=== PATIENT | male | born 1965 | race Caucasian/White ===

== ENCOUNTER 2016-10-12 08:10 | Day surgery (SDC) | payer BC ==
[~2016-10-12] VITALS: Ht 185.4 cm; Wt 139.3 kg
[~2016-10-12 08:10] MED LIST: CELEXA20 MG PO; CLARITIN 10 MG10 MG PO; FLOMAX0.4 MG; GLUCOPHAGE1000 MG PO; GLUCOTROL 5 MG T5 MG PO; MULTIPLE VITAMI1 TA1 PO; NORVASC10 MG PO; OMEPRAZOLE20 M1 PO; ZESTRIL20 MG PO; ZESTRIL40 MG; ZYLOPRIM100 MG PO
[2016-10-12 08:46] VITALS: BP 133/77; Ht 185.4 cm; Wt 139.3 kg
[2016-10-12 09:06] LABS: CALC OSMOLALITY 279 mosm/kg (275-300); CARBON DIOXIDE 28.6 mmol/L (21.0-32.0); CHLORIDE - SERUM 102 mmol/L (98-107); POTASSIUM - SERUM 3.9 mmol/L (3.5-5.1); SODIUM 138 mmol/L (136-145); UREA NITROGEN 13 mg/dL (7-18); eGFR NON AFRICAN AMERICAN 84 mL/min (90-120)
[2016-10-12 09:13] LABS: GLUCOSE 167 mg/dL (74-106)
[2016-10-12 09:17] LABS: BASOPHILS 1.4 % (0.0-2.0); EOSINOPHILS 7.8 % (0-7); HEMATOCRIT 42.2 % (42.0-54.0); HEMOGLOBIN 14.7 g/dL (13.5-17.5); IMMATURE GRANULOCYTES 0.3 % (0-5); LYMPHOCYTES 26.2 % (15-50); MCH 31.1 pg (26.0-34.0); MCHC 34.8 g/dL (31.0-37.0); MCV 89.4 fL (80.0-100.0); MEAN PLATELET VOLUME 12.1 fL (7.4-10.4); NEUTROPHILS 57.3 % (40-80); PLATELET COUNT 161 10x3/uL (130-400); RBC 4.72 10x6/uL (4.20-6.10); WBC 9.5 10x3/uL (4.8-10.8)
[2016-10-12 09:49] LABS: APTT 35.5 SECONDS (22.8-39.4)
--- NOTE | 2016-10-12 11:39 | NUR ---
PATIENT ARMS AT SIDE AND BLANKET WRAPPED AROUND ROLAN RODRÍGUEZ.
--- NOTE | 2016-10-12 12:40 | NUR ---
CARE TO HEMANT SHANKAR RN @[phone]
--- NOTE | 2016-10-12 14:57 | OP ---
PATIENT NAME: ASTON OREILLY MEDICAL RECORD: [id number] :69 LOCATION:[facility] ADMISSION DATE: SURGEON: CELY ALAS MD DATE OF OPERATION: 10/12/2016 PREOPERATIVE DIAGNOSIS: Carcinoma of the left tongue. POSTOPERATIVE DIAGNOSIS: Carcinoma of the left tongue. PROCEDURE: Wide local excision of left lateral tongue. SURGEON: Cely Alas MD ANESTHESIA: General orotracheal. BLOOD LOSS: Less than 5 cc. SPECIMENS: Left lateral tongue excision with a suture at 12 o'clock. COMPLICATIONS: None. DISPOSITION: Recovery, stable. Frozen section margins were negative, but I really did not see any tumor in the specimen. HISTORY: Mr. Oreilly had a previous excision of left lateral tongue, mostly appeared to be a dysplasia, but there was a microscopic evidence of CIS or microinvasive carcinoma at one point near a margin. He is admitted for wide local excision to make sure adequate margins are obtained. DESCRIPTION OF PROCEDURE: He was brought to the operating room and placed in supine position, sedated and intubated by anesthesia. Eyes were taped. A right rubber tooth bite block was placed on the right side. The left tongue was dried off with Ray-Patito sponge and the area was injected with 1 cc of 1% lidocaine with 1:100,000 epinephrine. A 15 blade was used to make an elliptical incision with margins of a cm above and below the previous excised area. This was taken down deeply into the muscle with Metzenbaum scissors. A suture was used to qing the position at 12 o'clock and that was sent for frozen. Bleeding was controlled with cautery and then multiple horizontal mattress 3-0 Vicryl sutures were used to fold up the tongue and recreate a shape and close up the mucosal edges. Then, the mucosal edges were closed with interrupted 4-0 chromic[address] Path returned no evidence of tumor dysplasia and the specimen. At that point, the procedure was complete. He was awakened, extubated, and transported to recovery in good condition. No complications. TRANSINT:[id number] Voice Confirmation ID: [id number] DOCUMENT ID: [id number] OPERATIVE REPORT [id number] ASTON OREILLY CELY ALAS MD at [id number] CC: [id number] DICTATION DATE: 10/12/16 1318 HR ANALYST: 10/12/16 1356 [facility] [address] [id number]
--- NOTE | 2016-10-23 10:18 | HP ---
PATIENT: ASTON OREILLY MEDICAL RECORD: [id number] ACCOUNT: [id number] LOCATION:[facility] : 69 ADMISSION DATE: 10/12/16 HISTORY AND PHYSICAL EXAMINATION Preoperative history and physical HISTORY OF PRESENT ILLNESS: Mr. Oreilly is a 51-year-old white male with a history of a carcinoma of the tongue in 2003. He has had an area of dysplasia excised since then. Last month, I excised another area in the left side of the tongue and on final pathology, there was a microscopic focus of carcinoma in situ or invasive carcinoma near the margin. He has been admitted for wide local excision of left side of the tongue around that previous excisional biopsy. PAST SURGICAL HISTORY: Includes diabetes, hypertension, reflux, and tongue cancer. SOCIAL HISTORY: Includes chewing tobacco. He quit long ago. CURRENT MEDICATIONS: Amlodipine, lisinopril, omeprazole, glipizide, metformin, and citalopram. ALLERGIES: No known drug allergies. PHYSICAL EXAMINATION: GENERAL: He is a healthy appearing and alert. FACE: Normal and symmetric. No lesions. EYES: Sclerae and conjunctivae are normal. EARS: Canals and TMs are normal. NOSE: No mass, polyps or drainage. ORAL CAVITY AND OROPHARYNX: He has a suture line in the left side of the tongue from previous excision. There is no obvious lesion. NECK: No masses and no adenopathy. CHEST: Clear. CARDIOVASCULAR: Regular rate and rhythm. No murmur. EXTREMITIES: Normal. IMPRESSION: Previous excisional biopsy showed microscopic focus of carcinoma. He is being admitted for wide local excision left side of the tongue to make sure there are adequate margins and is disease-free. TRANSINT:[id number] Voice Confirmation ID: [id number] DOCUMENT ID: [id number] CELY ALAS MD at 1018 CC: [id number] DICTATION DATE: 10/16/16 1039 [facility] 7 [address] 8 VISITING TEACHER: 10/16/16 1117 [facility] 10/12/16 [place] [phone]
== END 2016-10-12 14:45 | disposition home or self-care (01) ==
LOC: D.OPS 08:10
PROVIDERS: Anesthesiology
DX: C02.1 Malignant neoplasm of border of tongue (principal)

== ENCOUNTER → 2019-01-11 08:03 | Outpatient (CLI) | payer BC | END | disposition home or self-care (01) | LOC: D.US 08:03 | DX: N20.0 Calculus of kidney (principal) ==

== ENCOUNTER → 2019-01-16 12:39 | Outpatient (CLI) | payer BC ==
[2016-10-12 08:46] VITALS: BMI 40.5
== END | disposition home or self-care (01) ==
LOC: D.CT 12:39
PROVIDERS: ATTEND Family Medicine
DX: K57.93 Diverticulitis of intestine, part unspecified, without perforation or abscess with bleeding (principal)